=== PATIENT | male | born 1955 | race Caucasian/White ===

== ENCOUNTER 2017-12-07 08:00 | Inpatient (IN) | payer OTHER ==
[~2017-12-07] VITALS: Ht 180.3 cm; Wt 127.0 kg
[2017-12-07] MEDS ORDERED: LOTREL 5-40 MG1 EACH PO (12:12)
[2017-12-07] MEDS ORDERED: PLAVIX75 MG PO (12:13)
[2017-12-07] MEDS ORDERED: METFORMIN HCL500 MG PO (12:13)
[2017-12-07] MEDS ORDERED: METOPROLOL ER-1 EAC1 PO (12:13)
[2017-12-07] MEDS ORDERED: ASA81 MG PO (12:13)
[2017-12-07] MEDS ORDERED: LIPITOR40 MG PO (12:13)
[2017-12-07] MEDS ORDERED: ZANTAC300 MG PO (12:14)
[2017-12-07] MEDS ORDERED: WELLBUTRIN XL300 MG PO (12:14)
[2017-12-07] MEDS ORDERED: OMEPRAZOLE40 MG PO (12:14)
[2017-12-07] MEDS ORDERED: EFFEXOR XR150 MG PO (12:14)
[2017-12-16] MEDS ORDERED: DOCUSATE SODIU100 MG PO (09:33)
[2017-12-16] MEDS ORDERED: CLONAZEPAM1 MG PO (09:36)
[2017-12-16] MEDS ORDERED: PERCOCET 5-3251 EACH PO (09:36)
== END 2017-12-16 13:17 | disposition home or self-care (01) | DRG 454 ==
LOC: O/R 12-15 04:50 → EDBD 12-15 08:00 → SURH 12-15 08:00 → SURG 12-15 14:14
PROVIDERS: Orthopaedic Surgery Orthopaedic Surgery of the Spine
PROC: 0RG2071 Fusion of 2 or more Cervical Vertebral Joints with Autologous Tissue Substitute, Posterior Approach, Posterior Column, Open Approach (ICD-10-PCS; 2017-12-15)
PROC: 0RT30ZZ Resection of Cervical Vertebral Disc, Open Approach (ICD-10-PCS; 2017-12-15)
PROC: 07DS3ZZ Extraction of Vertebral Bone Marrow, Percutaneous Approach (ICD-10-PCS; 2017-12-15)
PROC: 0RG20A0 Fusion of 2 or more Cervical Vertebral Joints with Interbody Fusion Device, Anterior Approach, Anterior Column, Open Approach (ICD-10-PCS; principal; 2017-12-15 10:00)
DX: M47.12 Other spondylosis with myelopathy, cervical region (principal); M50.022 Cervical disc disorder at C5-C6 level with myelopathy; I10 Essential (primary) hypertension; E11.9 Type 2 diabetes mellitus without complications